=== PATIENT | male | born 1965 | race Caucasian/White ===

== ENCOUNTER → 2016-12-17 | Outpatient (CLI) | payer MEDICARE ==
[~2016-12-17] MED LIST: FURO40TA6 PO; HUM100VI SC; INSU100I15 SC; INSU100V8 SQ; PREG225C PO; SPIR100T2 PO
[2016-12-17 10:59] LABS: ASPARTATE AMINO TRANSFERASE 45 U/L (15-37); BLOOD UREA NITROGEN 25 mg/dL (7-18)
== END | disposition home or self-care (01) ==
LOC: STAR 09:34
PROVIDERS: ATTEND Thoracic Surgery (Cardiothoracic Vascular Surgery)
DX: Z01.818 Encounter for other preprocedural examination (principal)
CPT/HCPCS: 36415; 80053; 93005

== ENCOUNTER 2016-12-26 05:49 | Day surgery (SDC) | payer MEDICARE ==
[2016-12-17 10:04] VITALS: BP 142/87
[~2016-12-26] VITALS: Ht 182.9 cm; Wt 90.0 kg
[2016-12-26] MEDS ORDERED: LIDOCAINE 1%, 2ML SQ PRN (06:30)
[2016-12-26] MEDS ORDERED: LACTATED RINGERS 1,000 ML IV SCH ×2 (06:30→08:18)
[2016-12-26 06:32] VITALS: BP 142/87
[2016-12-26] MEDS ORDERED: EPINEPHRINE 1 MG/ML, 1ML ONE (06:51)
[2016-12-26] MEDS ORDERED: BUPIVACAINE/PF 0.5% ONE (06:51)
[2016-12-26] MEDS ORDERED: PROMETHAZINE 25 MG/ML, 1ML IV PRN (07:30)
[2016-12-26] MEDS ORDERED: ACETAMINOPHEN 325 MG TABLET PO PRN (07:30)
[2016-12-26] MEDS ORDERED: FENTANYL PF 100 MCG/2ML IV PRN (07:30)
[2016-12-26] MEDS ORDERED: LABETALOL 5MG/ML, 20ML IV PRN (07:30)
[2016-12-26] MEDS ORDERED: OXYcodone 5 MG/5 ML ORAL.SOL UDC PO PRN ×2 (07:30→08:30)
[2016-12-26] MEDS ORDERED: ONDANSETRON 2MG/ML, 2ML IVPush PRN ×2 (07:30→08:30)
[2016-12-26] MEDS ORDERED: hydrALAzine 20 MG/ML, 1ML IV PRN (07:30)
[2016-12-26] MEDS ORDERED: MEPERIDINE/PF 25MG/0.5ML IVPush PRN (07:30)
[2016-12-26] MEDS ORDERED: PROPOFOL 10 MG/ML, 20ML ONE (07:43)
[2016-12-26] MEDS ORDERED: ROCURONIUM 10 MG/ML ONE (07:43)
[2016-12-26] MEDS ORDERED: GLYCOPYRROLATE 0.4 MG/2 ML, 2ML ONE (07:43)
[2016-12-26] MEDS ORDERED: CEFAZOLIN 1,000 MG ONE (07:43)
[2016-12-26] MEDS ORDERED: NEOSTIGMINE 1 MG/ML, 10ML ONE (07:43)
[2016-12-26] MEDS ORDERED: MIDAZOLAM 1 MG/ML, 2ML ONE (07:43)
[2016-12-26] MEDS ORDERED: FENTANYL PF 100 MCG/2ML ONE (07:43)
[2016-12-26 07:57] LABS: HEMATOCRIT 41.2 % (39.2-51.8); HEMOGLOBIN 14.2 g/dL (13.7-18.0); WHITE BLOOD COUNT 8.8 x10^3/uL (3.4-10)
[2016-12-26] MEDS ORDERED: morphine SULFATE 10 MG/ML, 1ML IVPush PRN (08:30)
[2016-12-26] MEDS ORDERED: HYDROmorphone 1 MG/ML, 1ML ONE ×2 (08:34→09:01)
[2016-12-26] MEDS ORDERED: OXYcodone 5 MG/5 ML ORAL.SOL UDC ONE (08:35)
[2016-12-26] MEDS: HYDROmorphone 1 MG/ML, 1ML IV PRN ×4 (08:38→09:08)
== END 2016-12-26 11:25 ==
LOC: OUT 05:49
PROVIDERS: ATTEND Thoracic Surgery (Cardiothoracic Vascular Surgery)
DX: K43.9 Ventral hernia without obstruction or gangrene (principal); K74.60 Unspecified cirrhosis of liver; I10 Essential (primary) hypertension; E11.9 Type 2 diabetes mellitus without complications; Z79.4 Long term (current) use of insulin
CPT/HCPCS: 36415; 49560; 49568; 82962; 84132; 85025; 85610; C1781; J0171; J0690; J1170; J2250; J2704; J2710; J3010; J3490; J7120